=== PATIENT | female | born 1945 | race African-American/Black ===

== ENCOUNTER 2024-07-29 21:37 | Emergency (ER) | payer BC, MEDICAID, MEDICARE ==
[~2024-07-29] VITALS: Ht 160 cm; Wt 50.0 kg
[~2024-07-29 21:37] MED LIST: ASPI-1160 PO; CLON0.1T PO; LACT10SO7 PO; LOSA50TA41 PO; P20 PO; PANT40TA51 PO
[2024-07-29 21:51] VITALS: O2SAT 99
[2024-07-29 22:01] VITALS: TEMP 36.7; O2SAT 99
[2024-07-29 23:32] VITALS: PULSE 80
[2024-07-29] MEDS: MORPHINE SULFATE 4 MG/ML INJ (FOR IV/IM USE) IM ONE (23:32)
[2024-07-29] MEDS: CYCLOBENZAPRINE 10MG TABLET PO ONE (23:32)
[2024-07-29 23:33] VITALS: BP 130/50; RESP 18
[2024-07-29] MEDS: LIDOCAINE 5% PATCH TOP SCH (23:33)
[2024-07-30] MEDS ORDERED: CYCL5TAB3 MT (02:06)
[2024-07-30] MEDS ORDERED: NAPR-1176 MT (02:06)
[2024-07-30] MEDS ORDERED: LIDO700A15 TP (02:06)
== END 2024-07-30 03:47 | disposition home or self-care (01) ==
LOC: ER 21:51
DX: G89.29 Other chronic pain (principal); M54.89 Other dorsalgia; I10 Essential (primary) hypertension; Z79.1 Long term (current) use of non-steroidal anti-inflammatories (NSAID); Z79.52 Long term (current) use of systemic steroids; Z79.82 Long term (current) use of aspirin; Z79.899 Other long term (current) drug therapy
CPT/HCPCS: 99283; 96372; J2270

== ENCOUNTER 2024-08-15 19:01 | Emergency (ER) | payer MEDICARE, MEDICAID ==
[~2024-08-15] VITALS: Ht 167.6 cm; Wt 54.0 kg
[~2024-08-15 19:01] MED LIST changes: +CYCL5TAB3 MT; +LIDO700A15 TP; +NAPR-1176 MT
[2024-08-15 19:15] VITALS: O2SAT 98
[2024-08-15 19:26] VITALS: BP 118/53; PULSE 91; RESP 18; TEMP 36.8; O2SAT 99
[2024-08-15] MEDS: LIDOCAINE 5% PATCH TOP SCH (21:09)
[2024-08-15] MEDS: MORPHINE SULFATE 4 MG/ML INJ (FOR IV/IM USE) IM ONE (21:09)
[2024-08-15] MEDS: CYCLOBENZAPRINE 10MG TABLET PO ONE (21:09)
[2024-08-15] MEDS ORDERED: HYDR-4001 MT (21:57)
== END 2024-08-15 22:12 | disposition home or self-care (01) ==
LOC: ER 19:01
DX: G89.29 Other chronic pain (principal); M25.562 Pain in left knee; I10 Essential (primary) hypertension; Z79.899 Other long term (current) drug therapy; Z79.82 Long term (current) use of aspirin; Z79.52 Long term (current) use of systemic steroids; Z79.1 Long term (current) use of non-steroidal anti-inflammatories (NSAID); Z98.890 Other specified postprocedural states
CPT/HCPCS: 99283; 96372; J2270

== ENCOUNTER 2024-10-11 16:18 | Emergency (ER) | payer BC, MEDICAID ==
[~2024-10-11] VITALS: Ht 170.2 cm; Wt 51.0 kg
[~2024-10-11 16:18] MED LIST changes: +HYDR-4001 MT; +LIDO-53 TP; -LIDO700A15 TP
[2024-10-11 16:26] VITALS: O2SAT 100
[2024-10-11] MEDS: ACETAMINOPHEN 325MG TABLET PO ONE (18:24)
[2024-10-11] MEDS: MORPHINE SULFATE 4 MG/ML INJ (FOR IV/IM USE) IM ONE (18:24)
[2024-10-11] MEDS: KETOROLAC 15MG/ML VIAL IM ONE (20:25)
[2024-10-11 20:56] LABS: DIFFERENTIAL COMMENT 0; EOSINOPHILS % 3.1 % (0.0-5.0); HEMATOCRIT. 31.1 % (36.0-48.0); HEMOGLOBIN. 9.8 g/dL (12.0-16.0); LYMPHOCYTES % 28.8 % (20.0-50.0); MEAN CORPUSCULAR HEMOGLOBIN 24.8 pg (28.0-32.0); MEAN CORPUSCULAR HGB CONC 31.4 g/dL (31.0-37.0); MEAN CORPUSCULAR VOLUME 78.9 fL (81.0-99.0); MEAN PLATELET VOLUME 7.3 fl (7.4-10.4); MONOCYTES % 10.4 % (2.0-8.0); NEUTROPHILS % 56.7 % (40.0-76.0); PLATELET 416 x1000/uL (130-400); RED BLOOD CELL COUNT 3.94 mill/uL (4.2-5.4); RED CELL DISTRIBUTION WIDTH 19.2 % (11.6-14.6); WHITE BLOOD COUNT 7.2 x1000/uL (4.5-11.0)
[2024-10-11 21:02] VITALS: BP 125/66; PULSE 96; RESP 15; TEMP 36.6; O2SAT 100
[2024-10-11 21:03] LABS: POTASSIUM 3.7 mEq/L (3.5-5.1)
[2024-10-11 21:05] LABS: CALCIUM 9.6 mg/dL (8.7-10.4)
[2024-10-11 21:09] LABS: CREATININE 1.6 mg/dL (0.6-1.0)
[2024-10-11] MEDS ORDERED: CYCL10TA21 MT (21:11)
== END 2024-10-11 21:04 | disposition home or self-care (01) ==
LOC: ER 16:18
DX: G89.29 Other chronic pain (principal); M54.50 Low back pain, unspecified; I10 Essential (primary) hypertension; Z98.890 Other specified postprocedural states; Z79.82 Long term (current) use of aspirin; Z79.899 Other long term (current) drug therapy
CPT/HCPCS: 99285; 72131; 80048; 85025; 36415; 96372; J1885; J2270

== ENCOUNTER 2024-11-13 16:55 | Emergency (ER) | payer BC, MEDICAID ==
[~2024-11-13] VITALS: Ht 167.6 cm; Wt 54.0 kg
[~2024-11-13 16:55] MED LIST changes: +CYCL10TA21 MT
[2024-11-13 17:04] VITALS: TEMP 36.7; O2SAT 99
[2024-11-13] MEDS: METHOCARBAMOL 750MG TABLET PO SCH (17:51)
[2024-11-13] MEDS: HYDROCODONE/ACETAMINOPHEN 5/325MG TABLET PO ONE (17:51)
[2024-11-13] MEDS: KETOROLAC 30MG/ML VIAL IM ONE (17:51)
[2024-11-13] MEDS ORDERED: NAPR-1176 MT (18:06)
[2024-11-13 18:31] VITALS: BP 128/63; PULSE 74; RESP 16; O2SAT 99
== END 2024-11-13 18:32 | disposition home or self-care (01) ==
LOC: ER 16:55
DX: G89.29 Other chronic pain (principal); M54.9 Dorsalgia, unspecified; I10 Essential (primary) hypertension; Z79.899 Other long term (current) drug therapy; Z79.82 Long term (current) use of aspirin; Z79.52 Long term (current) use of systemic steroids; Z79.1 Long term (current) use of non-steroidal anti-inflammatories (NSAID); Z98.890 Other specified postprocedural states
CPT/HCPCS: 99283; 96372; J1885

== ENCOUNTER 2024-12-10 18:07 | Emergency (ER) | payer BC, MEDICAID ==
[~2024-12-10] VITALS: Ht 162.6 cm; Wt 55.0 kg
[2024-12-10 18:25] VITALS: O2SAT 99
[2024-12-10] MEDS ORDERED: OXYCODONE HCL/ACETAMINOPHEN 5/325MG TABLET PO ONE (20:00)
[2024-12-10 20:22] VITALS: BP 136/63; PULSE 90; RESP 18; TEMP 36.7; O2SAT 100
[2024-12-10] MEDS ORDERED: OXYCODONE HCL/ACETAMINOPHEN 5/325MG TABLET PO SCH (21:00)
== END 2024-12-10 20:25 | disposition home or self-care (01) ==
LOC: ER 18:07
DX: G89.29 Other chronic pain (principal); M54.50 Low back pain, unspecified; I10 Essential (primary) hypertension; Z79.1 Long term (current) use of non-steroidal anti-inflammatories (NSAID); Z79.52 Long term (current) use of systemic steroids; Z79.82 Long term (current) use of aspirin; Z79.899 Other long term (current) drug therapy; Z90.49 Acquired absence of other specified parts of digestive tract
CPT/HCPCS: 99283

== ENCOUNTER 2025-01-24 23:24 | Emergency (ER) | payer BC, MEDICAID ==
[~2025-01-24] VITALS: Ht 157.5 cm; Wt 52.0 kg
[2025-01-24 23:52] VITALS: O2SAT 100
[2025-01-25 00:53] LABS: BASOPHILS % 1.4 % (0.0-2.0); EOSINOPHILS % 3.1 % (0.0-5.0); HEMATOCRIT. 24.3 % (36.0-48.0); HEMOGLOBIN. 7.8 g/dL (12.0-16.0); LYMPHOCYTES % 23.9 % (20.0-50.0); MEAN PLATELET VOLUME 7.1 fl (7.4-10.4); MONOCYTES % 11.1 % (2.0-8.0); NEUTROPHILS % 60.5 % (40.0-76.0); PLATELET 358 x1000/uL (130-400); RED BLOOD CELL COUNT 3.20 mill/uL (4.2-5.4); RED CELL DISTRIBUTION WIDTH 17.4 % (11.6-14.6)
[2025-01-25 01:09] LABS: UREA NITROGEN BLOOD 22 mg/dL (9-23)
[2025-01-25 01:10] LABS: ASPARTATE AMINOTRANSFERASE 20 IU/L (<34)
[2025-01-25 01:11] LABS: BILIRUBIN TOTAL 0.2 mg/dL (0.1-1.0); PROTEIN TOTAL 7.2 g/dL (6.0-8.3)
[2025-01-25 01:12] LABS: CREATININE 1.6 mg/dL (0.6-1.0)
[2025-01-25] MEDS: HYDROXYZINE 25MG TABLET PO ONE (01:19)
[2025-01-25 02:03] VITALS: BP 148/60; PULSE 87; RESP 18; TEMP 36.9; O2SAT 100
== END 2025-01-25 02:19 | disposition home or self-care (01) ==
LOC: ER 23:24
DX: L29.9 Pruritus, unspecified (principal); D50.0 Iron deficiency anemia secondary to blood loss (chronic); N18.9 Chronic kidney disease, unspecified; I12.9 Hypertensive chronic kidney disease with stage 1 through stage 4 chronic kidney disease, or unspecified chronic kidney disease; Z79.899 Other long term (current) drug therapy
CPT/HCPCS: 36415; 80053; 85025; 99283

== ENCOUNTER 2025-01-31 18:55 | Emergency (ER) | payer BC, MEDICAID ==
[~2025-01-31] VITALS: Ht 170.2 cm; Wt 44.0 kg
[2025-01-31 19:14] VITALS: O2SAT 100
[2025-01-31] MEDS: ACETAMINOPHEN 325MG TABLET PO ONE (20:44)
[2025-01-31] MEDS: KETOROLAC 15MG/ML VIAL IM ONE (20:46)
[2025-01-31] MEDS: CYCLOBENZAPRINE 10MG TABLET PO SCH (20:46)
[2025-01-31] MEDS ORDERED: CYCL5TAB3 MT (21:07)
[2025-01-31] MEDS ORDERED: NAPR220C61 MT (21:07)
[2025-01-31] MEDS: LIDOCAINE 5% PATCH TOP SCH (21:18)
[2025-01-31 21:29] VITALS: BP 137/67; PULSE 87; RESP 14; TEMP 37; O2SAT 99
== END 2025-01-31 21:30 | disposition home or self-care (01) ==
LOC: ER 18:55
DX: G89.29 Other chronic pain (principal); M54.50 Low back pain, unspecified; I10 Essential (primary) hypertension; Z79.899 Other long term (current) drug therapy
CPT/HCPCS: 99283; 96372; J1885

== ENCOUNTER 2025-02-05 23:17 | Emergency (ER) | payer BC, MEDICAID ==
[~2025-02-05] VITALS: Ht 165.1 cm; Wt 45.0 kg
[~2025-02-05 23:17] MED LIST changes: +NAPR220C61 MT
[2025-02-05 23:19] VITALS: O2SAT 97
[2025-02-06] MEDS ORDERED: CELE-116 MT (00:25)
[2025-02-06] MEDS ORDERED: HYDR-4001 MT (00:25)
[2025-02-06] MEDS: KETOROLAC 30MG/ML VIAL IM ONE (00:50)
[2025-02-06] MEDS: HYDROCODONE/ACETAMINOPHEN 5/325MG TABLET PO ONE (00:57)
[2025-02-06 02:21] VITALS: BP 128/57; PULSE 87; RESP 16; TEMP 36.8; O2SAT 98
== END 2025-02-06 02:21 | disposition home or self-care (01) ==
LOC: ER 23:17
DX: M25.562 Pain in left knee (principal); M54.50 Low back pain, unspecified
CPT/HCPCS: 99283; 96372; J1885

== ENCOUNTER 2025-02-09 21:49 | Emergency (ER) | payer BC, MEDICAID ==
[~2025-02-09] VITALS: Ht 154.9 cm; Wt 53.0 kg
[~2025-02-09 21:49] MED LIST changes: +CELE-116 MT
[2025-02-09 22:40] VITALS: O2SAT 99
[2025-02-09] MEDS: HYDROCODONE/ACETAMINOPHEN 5/325MG TABLET PO ONE (23:43)
[2025-02-09] MEDS: KETOROLAC 15MG/ML VIAL IM ONE (23:43)
[2025-02-10] MEDS ORDERED: HYDR-2988 MT (00:47)
[2025-02-10] MEDS ORDERED: HYDR-4001 MT (01:07)
[2025-02-10 01:15] VITALS: BP 127/73; PULSE 77; RESP 20; TEMP 37.3; O2SAT 99
== END 2025-02-10 01:15 | disposition home or self-care (01) ==
LOC: ER 21:49
DX: G89.29 Other chronic pain (principal); M54.50 Low back pain, unspecified; I10 Essential (primary) hypertension; Z90.49 Acquired absence of other specified parts of digestive tract; Z79.899 Other long term (current) drug therapy
CPT/HCPCS: 99283; 96372; J1885

== ENCOUNTER 2025-02-11 18:49 | Emergency (ER) | payer BC, MEDICAID ==
[~2025-02-11] VITALS: Ht 167.6 cm; Wt 53.2 kg
[~2025-02-11 18:49] MED LIST changes: +HYDR-2988 MT
[2025-02-11 19:00] VITALS: O2SAT 100
[2025-02-11] MEDS ORDERED: HYDROCODONE/ACETAMINOPHEN 7.5/325MG TABLET PO ONE (20:30)
[2025-02-11] MEDS: HYDROCODONE/ACETAMINOPHEN 7.5/325MG TABLET PO SCH (20:54)
[2025-02-11 21:33] VITALS: BP 152/67; PULSE 82; RESP 16; TEMP 36.7; O2SAT 100
== END 2025-02-11 21:43 | disposition home or self-care (01) ==
LOC: ER 18:49
DX: M19.011 Primary osteoarthritis, right shoulder (principal); M19.012 Primary osteoarthritis, left shoulder; M19.079 Primary osteoarthritis, unspecified ankle and foot; M17.0 Bilateral primary osteoarthritis of knee; E78.5 Hyperlipidemia, unspecified; I10 Essential (primary) hypertension; Z55.6 Problems related to health literacy; Z76.0 Encounter for issue of repeat prescription; Z76.5 Malingerer [conscious simulation]; Z79.1 Long term (current) use of non-steroidal anti-inflammatories (NSAID); Z79.52 Long term (current) use of systemic steroids; Z79.82 Long term (current) use of aspirin; Z79.899 Other long term (current) drug therapy; Z90.49 Acquired absence of other specified parts of digestive tract
CPT/HCPCS: 99283

== ENCOUNTER 2025-02-12 15:26 | Emergency (ER) | payer BC, MEDICAID ==
[~2025-02-12] VITALS: Ht 160 cm; Wt 48.0 kg
[2025-02-12 15:39] VITALS: O2SAT 98
[2025-02-12 15:41] VITALS: TEMP 37; O2SAT 100
[2025-02-12 16:59] VITALS: BP 130/80; PULSE 81; RESP 18
[2025-02-12] MEDS: KETOROLAC 30MG/ML VIAL IM ONE (16:59)
[2025-02-12] MEDS: TRAMADOL 50MG TABLET PO ONE (16:59)
== END 2025-02-12 17:13 | disposition home or self-care (01) ==
LOC: ER 15:26
DX: G89.29 Other chronic pain (principal); M54.50 Low back pain, unspecified; M17.0 Bilateral primary osteoarthritis of knee; I10 Essential (primary) hypertension; Z76.5 Malingerer [conscious simulation]; Z79.1 Long term (current) use of non-steroidal anti-inflammatories (NSAID); Z79.52 Long term (current) use of systemic steroids; Z79.82 Long term (current) use of aspirin; Z79.899 Other long term (current) drug therapy; Z90.49 Acquired absence of other specified parts of digestive tract
CPT/HCPCS: 99283; 96372; J1885

== ENCOUNTER 2025-02-13 21:42 | Emergency (ER) | payer BC, MEDICAID ==
[~2025-02-13] VITALS: Ht 165.1 cm; Wt 54.3 kg
[2025-02-13 21:50] VITALS: O2SAT 100
[2025-02-14] MEDS: TRAMADOL 50MG TABLET PO ONE (00:08)
[2025-02-14] MEDS: KETOROLAC 30MG/ML VIAL IM ONE (00:08)
[2025-02-14 00:11] VITALS: BP 152/78; PULSE 89; RESP 12; TEMP 36.8; O2SAT 100
== END 2025-02-14 00:16 | disposition home or self-care (01) ==
LOC: ER 21:42
DX: M17.12 Unilateral primary osteoarthritis, left knee (principal); M54.50 Low back pain, unspecified; I10 Essential (primary) hypertension; Z79.1 Long term (current) use of non-steroidal anti-inflammatories (NSAID); Z79.52 Long term (current) use of systemic steroids; Z79.82 Long term (current) use of aspirin; Z90.49 Acquired absence of other specified parts of digestive tract; Z79.899 Other long term (current) drug therapy
CPT/HCPCS: 99283; 96372; J1885

== ENCOUNTER 2025-02-17 18:16 | Emergency (ER) | payer BC, MEDICAID ==
[~2025-02-17] VITALS: Ht 165.1 cm; Wt 48.0 kg
[2025-02-17 18:29] VITALS: BP 115/50; TEMP 36.6; O2SAT 100
[2025-02-17 18:37] VITALS: PULSE 87; RESP 18; O2SAT 100
[2025-02-17] MEDS ORDERED: HYDR-4001 MT (23:31)
[2025-02-17] MEDS: HYDROCODONE/ACETAMINOPHEN 5/325MG TABLET PO ONE (23:31)
== END 2025-02-17 23:49 | disposition home or self-care (01) ==
LOC: ER 18:16
DX: M54.50 Low back pain, unspecified (principal); M25.562 Pain in left knee; I10 Essential (primary) hypertension; Z98.890 Other specified postprocedural states; Z79.1 Long term (current) use of non-steroidal anti-inflammatories (NSAID); M19.90 Unspecified osteoarthritis, unspecified site; Z79.899 Other long term (current) drug therapy; Z79.891 Long term (current) use of opiate analgesic; Z79.82 Long term (current) use of aspirin; Z79.52 Long term (current) use of systemic steroids
CPT/HCPCS: 99283

== ENCOUNTER 2025-03-18 18:39 | Emergency (ER) | payer BC, MEDICAID ==
[~2025-03-18] VITALS: Ht 172.7 cm; Wt 66.0 kg
[2025-03-18 19:10] VITALS: O2SAT 100
[2025-03-18] MEDS ORDERED: QUET100T MT (19:47)
[2025-03-18 20:08] VITALS: BP 141/70; PULSE 91; RESP 17; TEMP 37.1; O2SAT 100
== END 2025-03-18 20:09 | disposition home or self-care (01) ==
LOC: ER 18:39
DX: Z76.0 Encounter for issue of repeat prescription (principal); I10 Essential (primary) hypertension; Z79.1 Long term (current) use of non-steroidal anti-inflammatories (NSAID); Z79.52 Long term (current) use of systemic steroids; Z79.82 Long term (current) use of aspirin; Z79.891 Long term (current) use of opiate analgesic; Z79.899 Other long term (current) drug therapy
CPT/HCPCS: 99282